=== PATIENT | female | born 1975 | race Caucasian/White ===

== ENCOUNTER 2022-02-13 10:45 | Emergency (ER) | payer MEDICAID ==
[~2022-02-13] VITALS: Ht 160 cm; Wt 64.6 kg
[~2022-02-13 10:45] MED LIST: BISA-77 PO; COL100C PO; HYDR-4383 PO; NO HOME MEDS
[2022-02-13 11:28] VITALS: BP 160/86
[2022-02-13] MEDS ORDERED: HYDR-3965 PO (13:59)
== END 2022-02-13 14:22 | disposition home or self-care (01) ==
LOC: ER 10:45
DX: M43.10 Spondylolisthesis, site unspecified (principal); M54.50 Low back pain, unspecified; Z56.0 Unemployment, unspecified; Z88.5 Allergy status to narcotic agent; Z79.899 Other long term (current) drug therapy
CPT/HCPCS: 72100; 73140; 99284

== ENCOUNTER 2025-01-07 11:31 | Emergency (ER) | payer MEDICAID ==
[~2025-01-07] VITALS: Ht 162.6 cm; Wt 63.0 kg
[2025-01-07] MEDS ORDERED: naloxone 2mg/2ml inj IV ONE (11:40)
--- NOTE | 2025-01-07 11:49 | Physician Documentation ---
History of Present Illness ~ Chief Complaint: ALOC Stated Complaint: ALTERED MENTAL STATUS/STROKE ALERT Time Seen by MD: 11:34 Primary Medical Doctor: Unknown Source: EMS (3) HPI Patient brought in for acute altered level of consciousness. Per her boyfriend she had been seen about an hour ago gardening, and 20-60 minutes later he saw her again and she was sitting unresponsive. She had had a recent complaints of strep throat and some pain in her groin, no drug use or alcohol use was reported. Paramedics report that she was initially unresponsive, although she did try to help to stand up when she was being placed in the ambulance. The patient became agitated in the gurney, moved all four extremities strongly, but was nonverbal and did not seem to understand. This happened a couple of times. Patient was initially diaphoretic when found, but as soon as she was placed in the shade she stopped sweating. Any time she has gotten agitated she has become diaphoretic again. Paramedics noted that she was dressed somewhat strangely, wearing two shirts, and having mismatched socks which were inside out, although they did not know the significance of this. The monitor rhythm was normal for paramedics, as were her pupils, her glucose level. No further information is available at this time. Further hx from significant other: Pt c/o headache since 9am. No medical problems, no meds, no blood thinners. Medication Reconciliation Allergies: Coded Allergies: codeine (Verified Adverse Reaction, Intermediate, GI UPSET, 01/07/25) Scheduled Bisacodyl* (Dulcolax*), 10 MG PO DAILY Docusate Sodium* (Colace*), 200 MG PO DAILY Scheduled PRN Hydrocodone/Acetaminophen (Loyal 5-325 Tablet), 1-2 TAB PO Q4HPRN PRN for pain Miscellaneous Medications Home Med List (No Home Medications), (Reported) Past Medical History Past Medical History: No Pertinent History Past Surgical History: no surgical history Alcohol Use: None Drug Use: none Lives with: Family Lives In: Home Occupation: unemployed Unable to obtain complete PMH: altered mental status Review of Systems Unable to obtain complete ROS: altered mental status Physical Exam Physical Exam General: Pt is awake but unresponsive, does not make eye contact, does not respond to questioning. Head: Normocephalic and atraumatic. Eyes: Conjunctiva normal. Pupils somewhat small, reactive, equal. ENT: Mucous membranes dry. (+) strong gag reflex Neck: Supple. Chest: Clear to auscultation bilaterally, without rales, rhonchi, or wheezes. There is no accessory muscle use or retractions. Cardiac: Regular rate and rhythm without murmurs, gallops or rubs. Palpation of the chest wall is normal. Abd: Soft, nondistended, minimal bowel sounds. No guarding or rebound. Extremities: Within normal limits without cyanosis, clubbing, or edema. Skin: Kathryn, warm and diaphoretic with no significant rash appreciated. Neuro: Cranial nerves II-XII grossly intact. No facial asymmetry. Moves all 4 extremities. Withdraws purposefully from localized painful stimulus Progress Results/Orders Results/Orders Orders - IVÁN AUSTIN MD Electrocardiogram (01/07/25 11:40) Chest,Single View (01/07/25 11:40) Ct Head (01/07/25 11:40) Culture Blood (01/07/25 11:40) Monitor (01/07/25 11:40) Saline Lock (01/07/25 11:40) Straight Cath For Urine Sample (01/07/25 11:40) Observation Status Start (01/07/25 12:13) Md To Page (01/07/25 12:25) Completed Orders - IVÁN AUSTIN MD Electrocardiogram (01/07/25 11:40) Cbc/Diff (01/07/25 11:40) Chest,Single View (01/07/25 11:40) Ct Head (01/07/25 11:40) Ethanol (01/07/25 11:40) Ammonia (01/07/25 11:40) Drug Screen, Urine (01/07/25 11:40) Normal Saline 1000ml (0.9% Sodium Chlori (01/07/25 11:40) Normal Saline 1000ml (0.9% Sodium Chlori (01/07/25 11:40) BMP (01/07/25 11:40) * Npo Until Passed Bedside Swa (01/07/25 11:40) Lacticsepsis (01/07/25 11:40) Naloxone 0.4 Mg/Ml Inj (Narcan 0.4mg/Ml (01/07/25 11:43) Naloxone 0.4 Mg/Ml Inj (Narcan 0.4mg/Ml (01/07/25 11:45) Potassium Cl 40meq/1/2ns 520ml ([place] (01/07/25 12:15) Ua W/Microscopic, Cult If Ind (01/07/25 11:55) Nicardipine-Ns 40mg/200ml Ivpb (Cardene- (01/07/25 12:25) Vital Signs 01/07/25 01/07/25 01/07/25 01/07/25 11:40 11:44 11:49 11:49 Temp 97.1 97.0 Pulse 64 67 74 60 Resp 22 25 68 18 B/P (MAP) 191/95 191/95 (127) 191/95 175/90 (118) Pulse Ox 100 100 100 100 O2 Flow Rate 0 01/07/25 01/07/25 01/07/25 01/07/25 11:54 11:59 12:00 12:00 Pulse 65 63 63 Resp 24 19 25 15 B/P (MAP) 182/98 (126) 182/98 Pulse Ox 100 100 97 01/07/25 01/07/25 01/07/25 01/07/25 12:01 12:04 12:09 12:14 Pulse 71 58 Resp 24 25 21 0 01/07/25 01/07/25 01/07/25 01/07/25 12:19 12:24 12:29 12:34 Temp 97.1 Pulse 66 63 63 Resp 0 26 21 19 B/P (MAP) 178/98 (124) Pulse Ox 96 01/07/25 01/07/25 01/07/25 01/07/25 12:36 12:39 12:44 12:49 Pulse 66 71 82 81 Resp 23 31 24 B/P (MAP) 180/90 Pulse Ox 98 98 01/07/25 01/07/25 01/07/25 01/07/25 12:54 12:59 13:04 14:05 Temp 97.1 97.1 97.1 Pulse 85 86 74 Resp 16 26 0 B/P (MAP) 156/86 (109) 143/88 (106) Pulse Ox 96 95 Laboratory Tests Test 01/07/25 11:48 01/07/25 11:55 White Blood Count 6.8 Red Blood Count 4.56 Hemoglobin 13.0 Hematocrit 38.7 Mean Corpuscular Volume 84.9 Mean Corpuscular Hemoglobin 28.6 Mean Corpuscular Hemoglobin Concent 33.6 Red Cell Distribution Width 14.6 H Platelet Count 315 Mean Platelet Volume 7.9 Neutrophils (%) (Auto) 58.0 Lymphocytes (%) (Auto) 28.0 Monocytes (%) (Auto) 11.4 Eosinophils (%) (Auto) 1.6 Basophils (%) (Auto) 1.0 Neutrophils # (Auto) 3.9 Lymphocytes # (Auto) 1.9 Monocytes # (Auto) 0.8 Eosinophils # (Auto) 0.1 Basophils # (Auto) 0.1 CBC Comment Sodium Level 139 Potassium Level 2.8 *L Chloride Level 103 Carbon Dioxide Level 27.9 Anion Gap 8 Blood Urea Nitrogen 5 L Creatinine 0.67 Estimated GFR/1.73 m2 > 90 BUN/Creatinine Ratio 7.5 L Glucose Level 111 H Lactic Acid Level 1.8 Calcium Level 8.9 Ammonia < 10 L Albumin 3.5 Chemistry Comments Ethyl Alcohol Level < 10 Urine Specimen Description Marie cath Urine Color Straw Urine Clarity Slightly cloudy Urine pH 7.0 Urine Specific [place] 1.020 Urine Protein Negative Urine Glucose (UA) Negative Urine Ketones Negative Urine Occult Blood Negative Urine Nitrite Negative Urine Bilirubin Negative Urine Urobilinogen 0.2 Urine Leukocyte Esterase Negative Urine RBC 0-2 Urine WBC 0-4 Urine Squamous Epithelial Cells Few Urine Bacteria Few Urine Mucus Few Urine Culture Indicated Not ind Volume Urine Centrifuged 4 ml Urine Comment Low volume Urine Opiates Screen Negative Urine Methadone Screen Negative Urine Fentanyl Screen Negative Urine Barbiturates Screen Negative Urine Phencyclidine Screen Negative Urine Amphetamines Screen Positive Urine Benzodiazepines Screen Negative Urine Cocaine Screen Negative Urine Cannabinoids Screen Negative Drug Screen Comment Microbiology Date/Time Source Procedure Growth Status 01/07/25 12:55 Blood Arm Left Blood Culture - Preliminary NEGATIVE (LESS THAN 24 HOURS) Resulted Re-Evaluation Re-Evaluation #1: Re-Evaluation Time: 11:55 Progress Diaphoresis improved, pt now opening eyes to command Re-Evaluation #2: Re-Evaluation Time: 12:[address] done, large left parietal bleed appreciated. BP elevated; nicardipine hanging now. Head of bed elevated. Pt's condition stable without change. Call placed for transfer to [facility] Neurosurgery as no Nsurg available here at this facility. Re-Evaluation #3: Re-Evaluation Time: 12:50 Progress Pt stable, condition unchanged. Paramedics here to transport. EKG/XRAY/CT/US/VASC/MRI EKG : EKG Rate: 63 EKG: NSR Hypertrophy: LVH Consults/PCP Consults/PCP : Time Call Requested: 12:25 Consult Reason/Comments: [facility] for transfer Additional Comment 12:[address] Jeff (ED) and Dr. Holman (Neurosurg) at [facility]. They accept for transfer. No mannitol or anticonvulsant per Neurosurgery. Medical Decision Making Additional Information Sudden onset of altered mental status in a patient otherwise healthy, previously seen gardening in the sun. Patient was unresponsive and diaphoretic, initial concern for possible heat related illness, ischemic or hemorrhagic stroke, drug intoxication. Patient hemodynamically stable in the emergency department, neurologic status with GCS of eight, protecting her airway, stable without deterioration throughout her emergency department stay. Imaging quickly obtained and confirmed acute intracranial hemorrhage. Patient known to not be anticoagulated. No mannitol or anticonvulsants per accepting neurosurgeon. As no neurosurgical care available at this facility we rapidly arranged transfer to [facility] and transfer was quickly effected to provide definitive specialty care. Departure Time of Disposition: 12:24 Disposition: 02 SHORT TERM HOSPITAL Impression: Primary Impression: Intracranial hemorrhage Condition: Stable (Stable for transfer) Referrals: NO PRIMARY CARE PROVIDER (PCP) Education Educated: Family (Patient's significant other has been updated by the nurse) Signature Scribe Signature: Attestation: IVÁN AUSTIN MD Jan 07, 2025 11:49
--- NOTE | 2025-01-07 11:51 | ELECTROCARDIOGRAPH REPORT ---
[facility] Test Date: 2025-01-07 Test Time: 11:48:42 Pat Name: SIDNEY GUAMAN Department: [facility]-ER Patient ID: [facility]-[id number] Room: Gender: F [employer]: : 1975 Requested By: IVÁN AUSTIN Order Number: [id number] Reading MD: Dr. Rohith Mcdaniel Measurements Intervals [place] Rate: 63 P: 69 [place]: 177 QRS: 70 QRSD: 105 T: 74 QT: 456 QTc: 467 Interpretive Statements Sinus rhythm Probable left atrial enlargement Left ventricular hypertrophy Electronically Signed On 01-07-2025 19:43:[address] Rohith Mcdaniel Please click the below link to view image of tracing.
[2025-01-07] MEDS: normal saline 1000ML IV soln IVB ONE ×2 (11:55)
[2025-01-07 12:01] LABS: MEAN PLATELET VOLUME 7.9 FL (7.4-10.4); RED CELL DISTRIBUTION WIDTH 14.6 % (11.5-14.5)
[2025-01-07 12:09] LABS: CREATININE 0.67 MG/DL (0.40-0.90); ETHANOL < 10 MG/DL (<10); TOTAL CARBON DIOXIDE 27.9 MMOL/L (24-32); eCRCL 86 ML/MIN; eGFR > 90 ML/MIN
[2025-01-07 12:17] LABS: LACTIC SEPSIS 1.8 MMOL/L (0.4-2.0)
[2025-01-07 12:22] LABS: LEUKOCYTE ESTERASE ,URINE NEGATIVE (Neg); NITRITES, URINE NEGATIVE (Neg); OCCULT BLOOD,URINE NEGATIVE (Neg)
[2025-01-07 12:23] LABS: UA COLLECTION TYPE FOLEY CATH
[2025-01-07 12:29] LABS: MUCUS STRANDS FEW /LPF (Neg); SQUAMOUS EPITHELIAL CELL,UR FEW /LPF (FEW)
[2025-01-07] MEDS: potassium Cl 40MEQ/1/2NS 520ml 520 ML IV ONE (12:36)
[2025-01-07] MEDS: niCARDipine-NS 40mg/200ml IVPB 200 ML IV SCH (12:36)
--- NOTE | 2025-01-07 12:42 | RADIOLOGY REPORT ---
EXAM: CT CT HEAD INDICATION: aloc TECHNIQUE: CT of the head without intravenous contrast. Coronal and sagittal reformatted images are s ubmitted. Radiation Dose : 1. Head: CT Dose: CTDI volume is 55.2 mGy. Dose-length product is 955.1 mGy*cm The dose indicators for CT are the volume Computed Tomography (CT) Dose Index (CTDIvol) and the Dose Length Product (DLP), and are measured in units of mGy and mGy-cm, respectively. These indicators are not patient dose, but values generated from the CT scanner acquisition factors. The report includes radiation exposure data for exposures received during this examination. All CT scans at this medical facility are performed using dose modulation techniques as appropriate to a performed exam including the following: Automated exposure control was utilized; adjustment of the MA and/or KV according to patient size; and use of iterative reconstruction technique. COMPARISON: None FINDINGS: There is acute intraparenchymal hematoma centered in the left temporal lobe which measures 4.8 x 4.0 by 4.0 cm (volume 38.4 cc). The hematoma is somewhat heterogeneous in appearance suggesting possible acute and hyperacute blood. There is adjacent left subarachnoid hemorrhage in the temporal lobe and in the left suprasellar cistern and left ambient cistern. There is kbhc-cw-turyl shift of midline by 8 mm. Effacement of the left lateral ventricle. No hydrocephalus. There is effacement of the left frontal and temporal lobe sulci. The saldivar-white differentiation is intact. The visualized paranasal sinuses and mastoid air cells are clear. No depressed calvarial fracture. The surrounding soft tissues are unremarkable. IMPRESSION: 1. Acute left temporal lobe intraparenchymal hematoma with acute and possibly hyperacute blood. Adjac ent subarachnoid hemorrhage. 8 mm rightward shift of midline. CT angiography of the head recommended for further evaluation.
[2025-01-07 12:47] LABS: URINE AMPHETAMINE SCREEN POSITIVE (Neg); URINE BARBITUATE SCREEN NEGATIVE (Neg); URINE BENZODIAZEPINES SCREEN NEGATIVE (Neg); URINE CANNABINOID SCREEN NEGATIVE (Neg); URINE COCAINE SCREEN NEGATIVE (Neg); URINE METHADONE SCREEN NEGATIVE (Neg); URINE OPIATE SCREEN NEGATIVE (Neg); URINE PHENCYCLIDINE SCREEN NEGATIVE (Neg)
[2025-01-07 12:59] VITALS: BP 143/88; O2SAT 95
[2025-01-07 13:04] VITALS: RESP 0
--- NOTE | 2025-01-07 13:07 | RADIOLOGY REPORT ---
CHEST RADIOGRAPH Indication: aloc Technique: Single frontal view of the chest was obtained Comparison: None FINDINGS: Lines and Tubes: None Lungs: No focal consolidation. Pleura: No effusion. No pneumothorax. Cardiomediastinal contours: Unremarkable Bones: No acute osseous abnormality. IMPRESSION: No acute cardiopulmonary disease.
[2025-01-07 14:05] VITALS: PULSE 74; TEMP 97.1
== END 2025-01-07 14:11 | disposition short-term general hospital (02) ==
LOC: ER 11:32
DX: I62.9 Nontraumatic intracranial hemorrhage, unspecified (principal); R40.4 Transient alteration of awareness; R45.1 Restlessness and agitation; R61 Generalized hyperhidrosis; Z88.5 Allergy status to narcotic agent
CPT/HCPCS: 36415; 70450; 71045; 80048; 80305; 80320; 81001; 82140; 83605; 85025; 87040; 93005; 96361; 96365; 96366; 96375; 99285; J2312; J3480; J3490; J7030; 96368; 96374